=== PATIENT | female | born 1970 | race Caucasian/White ===

== ENCOUNTER → 2019-11-28 09:02 | Outpatient (CLI) | payer OTHER, SELFPAY ==
--- NOTE | 2019-11-28 | DI.US.S_ITS ---
PROCEDURE: US PELVIC COMPLETE INDICATIONS: EXCESSIVE BLEEDING IN THE PRE MENOPOSSAL PERIOD TECHNIQUE: Real-time scanning was performed of the pelvic organs, with image documentation. Additional endovaginal scanning was necessary due to incomplete visualization of the adnexal and endometrial structures by transabdominal scanning. COMPARISON: None. FINDINGS: Transabdominal scanning: Limited scanning through the kidneys shows no hydronephrosis. No pathologic free abdominal or pelvic fluid. Endovaginal scanning: Uterus: Uterus is normal in size at 10.5 x 4.8 x 5.3 cm. The endometrium measures 7-8 mm in combined thickness. At the level of the cervix, there is a polypoid mass with a stock seen that measures 10 x 7 x 8 mm. Ovaries: The right ovary measures 3.6 x 1.7 x 1.9 cm and demonstrates a follicle measuring 1.3 cm. The left ovary measures 2.7 x 1.4 x 2.3 cm and demonstrates a 1.6 cm follicle. No adnexal masses can be seen on either side. IMPRESSION: There is a 1 cm cervical polyp seen. Please correlate with physical examination findings. Dictated by: Omkar Roman M.D. on 11/28/2019 at 10:33 Approved by: Omkar Roman M.D. on 11/28/2019 at 10:34
== END ==
PROVIDERS: PCP Physician Assistant; Referring Provider Physician Assistant; Visit Provider Physician Assistant
DX: N92.4 Excessive bleeding in the premenopausal period (principal); N84.1 Polyp of cervix uteri
CPT/HCPCS: 76830; 76856

== ENCOUNTER → 2020-06-05 12:32 | Outpatient (CLI) | payer OTHER, MEDICAID, SELFPAY ==
[2020-06-05 21:20] LABS: COVID19 - ORCAS (NP or Nasal) Negative (Negative)
== END ==
PROVIDERS: PCP Physician Assistant; Visit Provider Family Medicine
DX: Z20.822 Contact with and (suspected) exposure to COVID-19 (principal)
CPT/HCPCS: U0003

== ENCOUNTER → 2020-06-10 12:18 | Outpatient (CLI) | payer OTHER, MEDICAID, SELFPAY ==
[2020-06-10 21:27] LABS: COVID19 - ORCAS (NP or Nasal) Negative (Negative)
== END ==
PROVIDERS: PCP Physician Assistant; Visit Provider Physician Assistant Medical
DX: Z20.822 Contact with and (suspected) exposure to COVID-19 (principal)
CPT/HCPCS: C9803; U0003